=== PATIENT | female | born 1965 | race Caucasian/White ===

== ENCOUNTER 2016-09-09 22:37 | Emergency (ER) | payer OTHER ==
[~2016-09-09] VITALS: Ht 172.7 cm; Wt 84.8 kg
[2016-09-09] MEDS ORDERED: NAPROSYN500 MG PO (23:36)
[2016-09-09] MEDS ORDERED: FLEXERIL10 MG PO (23:36)
[2016-09-09] MEDS ORDERED: VALIUM5 MG PO (23:53)
[2016-09-10 00:12] VITALS: BP 135/89
== END 2016-09-10 00:13 | disposition home or self-care (01) ==
LOC: EME 22:37
DX: M26.621 Arthralgia of right temporomandibular joint (principal); Z88.6 Allergy status to analgesic agent; Z88.0 Allergy status to penicillin
CPT/HCPCS: 99281; 99283